=== PATIENT | male | born 1975 | race Two or more races ===

== ENCOUNTER 2018-02-10 18:14 | Emergency (ER) | payer BC ==
[2018-02-10] MEDS ORDERED: LIDOCAINE 1% INJ 10MG/ML (20 ML MDV) SQ ONE (18:36)
[2018-02-10 18:51] VITALS: RESP 20
[2018-02-10] MEDS ORDERED: fentaNYL (PF) 50 MCG/ML 2 ML AMP IVP STA (18:55)
--- NOTE | 2018-02-10 18:59 | XR ---
EXAMINATION TYPE: XR ankle limited LT DATE OF EXAM: 02/10/2018 COMPARISON: None HISTORY: Pain injury TECHNIQUE: 2 view left ankle FINDINGS: There is a fracture of the distal fibula. There is complete dislocation of the tibia from t he talus. IMPRESSION: 1. Dislocation of the ankle laterally with fracture of the distal diaphyseal fibula. Some posterior angulation of the fracture fragments is evident.
--- NOTE | 2018-02-10 19:01 | XR ---
EXAMINATION TYPE: XR tibia fibula LT DATE OF EXAM: 02/10/2018 COMPARISON: None HISTORY: Tackle injury, deformity TECHNIQUE: 2 view left tibia and fibula FINDINGS: Also see ankle images same date. Proximal tibia and fibula appear intact. The distal fibular diaphyseal fractures at the edge of the f [id number]. IMPRESSION: 1. Distal foreleg fracture minimally visualized. 2. Proximal tibia and fibula appear intact
--- NOTE | 2018-02-10 19:44 | XR ---
EXAMINATION TYPE: XR tibia fibula LT DATE OF EXAM: 02/10/2018 COMPARISON: 02/10/2018 HISTORY: Fracture dislocation TECHNIQUE: 2 view left tibia and fibula FINDINGS: The fibular fracture has normal alignment and positioning. There is mild subluxation of the talus laterally in relation to the ankle mortise. There is significant improvement in the reduction. No new fractures are identified. IMPRESSION: 1. Subluxation of the talus laterally in relation to the tibia. This is significantly improved from the comparison. 2. Normal alignment and positioning of the distal diaphyseal fibular fracture.
--- NOTE | 2018-02-10 19:46 | XR ---
EXAMINATION TYPE: XR ankle limited LT DATE OF EXAM: 02/10/2018 COMPARISON: 02/10/2018 HISTORY: Fracture dislocation TECHNIQUE: 2 view left ankle FINDINGS: Distal diaphyseal fibular fracture is evident. There is been reduction of the talus in rela tion to the tibia. Some lateral subluxation remains present. On the AP projection there is some subtle lucency within the distal medial malleolus. Nondisplaced fr acture of the distal medial malleolus is not excluded. IMPRESSION: 1. Reduction of the tibial talar dislocation. Some subluxation laterally remains present. 2. Reduction of the distal diaphyseal fibular fracture. 3. Possible nondisplaced occult fracture of the distal medial malleolus.
--- NOTE | 2018-02-10 20:27 | ED ---
General Adult HPI - General Chief complaint: Extremity Injury, Lower Stated complaint: Ankle injury Time Seen by Provider: 02/10/18 18:23 Source: patient Mode of arrival: EMS Limitations: no limitations - History of Present Illness Initial comments: Patient is a 42-year-old male presents with a chief complaint of a left ankle injury. Patient was playing football in the yard and got tackled. Patient states he rolled his ankle. On initial evaluation the ankle is obviously deformed with skin tenting. Patient admits to drinking 10-12 beers tonight. Patient has no other injuries or complaints. Patient is in no acute distress. - Related Data Home Medications Medication Instructions Recorded Confirmed Red Yeast Rice 600 mg PO DAILY 02/10/18 02/10/18 Vit D3/Folic Acid/B2/B6/B12 1 each PO DAILY 02/10/18 02/10/18 [Folgard Tablet] Previous Rx's Medication Instructions Recorded HYDROcodone/APAP 7.5-325MG [[place] 1 tab PO Q4H PRN 3 Days #18 tab 02/10/18 7.5-325] Ibuprofen [Motrin] 800 mg PO TID #21 tab 02/10/18 Allergies Allergy/AdvReac Type Severity Reaction Status Date / Time No Known Allergies Allergy Verified 02/10/18 18:18 Review of Systems ROS Statement: Those systems with pertinent positive or pertinent negative responses have been documented in the HPI. ROS Other: All systems not noted in ROS Statement are negative. Musculoskeletal: Reports: joint swelling, arthralgia Past Medical History Past Medical History: No Reported History History of Any Multi-Drug Resistant Organisms: None Reported Past Surgical History: No Surgical Hx Reported Past Psychological History: No Psychological Hx Reported Smoking Status: Never smoker Past Alcohol Use History: Occasional Past Drug Use History: None Reported General Exam Limitations: no limitations General appearance: alert, in no apparent distress Head exam: Present: atraumatic, normocephalic Eye exam: Present: normal appearance ENT exam: Present: normal exam Neck exam: Present: normal inspection Respiratory exam: Present: normal lung sounds bilaterally. Absent: respiratory distress, wheezes, rales Cardiovascular Exam: Present: normal rhythm, bradycardia GI/Abdominal exam: Present: soft. Absent: distended, tenderness Rectal exam: Present: deferred Extremities exam: Present: other (Patient has a severely deformed left ankle. There is skin tenting, and external rotation of about 100. There is a palpable DP pulse, good cap refill. Patient states that his toes are numb) Back exam: Present: normal inspection Neurological exam: Present: alert, oriented X3, CN II-XII intact Psychiatric exam: Present: normal affect, normal mood Skin exam: Present: warm, dry, intact Course Vital Signs 02/10/18 02/10/18 02/10/18 18:18 18:45 19:11 Temperature Pulse Rate 48 L 52 L 65 Respiratory 18 20 20 Rate Blood Pressure 93/43 112/71 116/75 O2 Sat by Pulse 100 99 96 Oximetry 02/10/18 19:42 Temperature 98.2 F Pulse Rate 56 L Respiratory 20 Rate Blood Pressure 117/77 O2 Sat by Pulse 99 Oximetry Medical Decision Making - Medical Decision Making Patient presents with a chief complaint of an ankle injury. On initial evaluation, vitals are stable, patient is in no acute distress. There is gross deformity of the left ankle. X-rays show a fracture of the distal fibula, and tibiotalar dislocation. The foot is rotated laterally about 100. X-rays confirm this finding. Local anesthesia was obtained with a several, and peroneal nerve block. Reduction was performed in the emergency department with good anatomical alignment of the extremity, pulses remain intact, feeling returned to the patient's toes. Currently the patient states he is a 0 out of 10 pain. Case discussed with Dr. Sequeira who states that the patient is stable for discharge and follow-up in the office on Monday. Patient given a prescription for [place], and Motrin. Opiate start talking form was filled out. Patient was instructed to use oral medications. Patient placed in a posterior mold short leg splint and instructed to be nonweightbearing on that extremity. He was instructed to elevate the extremity while at home. He was given contact information for Dr. Sequeira and instructed to follow up on Monday. Disposition Clinical Impression: Closed left ankle fracture Disposition: HOME SELF-CARE Condition: Good Instructions: Ankle Fracture (DC) Prescriptions: HYDROcodone/APAP 7.5-325MG [[place] 7.5-325] 1 tab PO Q4H PRN 3 Days #18 tab PRN Reason: Severe Pain Ibuprofen [Motrin] 800 mg PO TID #21 tab Is patient prescribed a controlled substance at d/c from ED?: Yes If prescribed controlled substance>3 days was MAPS reviewed?: Prescribed <3 Days Referrals: Ziggy Rae MD [Primary Care Provider] - 1-2 days Farnaz Freedman DO [Doctor of Osteopathic Medicine] - 1-2 days
[2018-02-10 20:46] VITALS: BP 102/56; PULSE 53; TEMP 98.3
== END 2018-02-10 20:35 | disposition home or self-care (01) ==
LOC: EC 18:14
DX: S82.832A Other fracture of upper and lower end of left fibula, initial encounter for closed fracture (principal); Z79.899 Other long term (current) drug therapy; W03.XXXA Other fall on same level due to collision with another person, initial encounter; Y93.61 Activity, american tackle football; Y92.096 Garden or yard of other non-institutional residence as the place of occurrence of the external cause
CPT/HCPCS: 73590; 73600; 99284; 27788; 96374; J2001; J3010

== ENCOUNTER → 2018-02-16 | Outpatient (CLI) | payer BC ==
--- NOTE | 2018-02-17 19:40 | CT ---
EXAMINATION TYPE: CT ankle LT wo con DATE OF EXAM: 02/16/2018 COMPARISON: Left ankle radiographs dated 02/10/2018 HISTORY: left ankle fx and left ankle pain. CT DLP: 342 mGycm Automated exposure control for dose reduction was used. TECHNIQUE: Contiguous axial CT slices of the left ankle were obtained with coronal reformats. FINDINGS: There is nonunion of the comminuted spiral fracture of the distal fibula with persistent 4 mm lateral displacement and mild angulation of the distal fracture fragment and its proximal fracture location. The distal fracture location is nondisplaced. The previously seen dislocation of the talotibial join t is no longer present. Joint spaces malalignment. Punctate density representing a small avulsion fra cture is seen of the medial malleolus with extensive soft tissue swelling overlying the medial malleo ej and lateral malleolus (seen diffusely throughout the ankle) suggesting underlying deltoid, anteri or talofibular ligament, and posterior talofibular ligament injury. Talar dome appears intact. No add itional fractures of the hindfoot are identified. No widening of the joint space in the region of the Lisfranc ligament. Type II navicular is seen. Calcaneal enthesophytes are also noted. IMPRESSION: 1. NONUNION OF THE SPIRAL DISTAL FIBULAR FRACTURE WITH PERSISTENT MILD ANGULATION AND DISPLACEMENT. 2. SMALL AVULSION FRACTURE OF THE MEDIAL MALLEOLUS SUGGESTING UNDERLYING DELTOID LIGAMENT INJURY. EXT ENSIVE SOFT TISSUE SWELLING OF THE ANKLE ALSO SUGGEST ANTERIOR TALOFIBULAR LIGAMENT AND POSSIBLE POST ERIOR TALOFIBULAR LIGAMENT INJURY. THERE IS ALSO SUSPECTED TENDINOUS INJURY FOR WHICH MRI COULD BE PE RFORMED. 3. NO EVIDENCE OF TALOTIBIAL JOINT DISLOCATION.
== END | disposition home or self-care (01) ==
LOC: RADCTMAIN 18:33
PROVIDERS: ATTEND Orthopaedic Surgery
DX: S82.52XA Displaced fracture of medial malleolus of left tibia, initial encounter for closed fracture (principal); S82.832A Other fracture of upper and lower end of left fibula, initial encounter for closed fracture; E78.5 Hyperlipidemia, unspecified

== ENCOUNTER 2018-02-22 06:51 | Day surgery (SDC) | payer BC ==
[2018-02-16 13:17] VITALS: BMI 29.4
[~2018-02-22 06:51] MED LIST: DEXAMETHASONE SOD PHOSPHATE 10 MG/ML 1 ML VIAL IV ONE; HYDROmorphone 0.5 MG/0.5 ML SYRINGE IVP PRN; ONDANSETRON 4 MG/2 ML VIAL IVP ONE; SCOPOLAMINE 1.5MG/72HR PATCH TRANSDERM ONE; ceFAZolin IN SWFI 2 GM/20 ML SYRINGE IVP ONE
[2018-02-22] MEDS: LACTATED RINGERS 1,000 ML IV SCH ×2 (08:04→08:51)
[2018-02-22] MEDS ORDERED: LIDOCAINE 1% 20 ML VIAL (10MG/ML) FOR IV START INTRADERMA ONE (08:06)
[2018-02-22] MEDS: MIDAZOLAM 2 MG/2 ML VIAL IV PRN ×2 (08:28→08:51)
[2018-02-22] MEDS: fentaNYL (PF) 50 MCG/ML 2 ML AMP IVP ONE ×2 (08:29→08:51)
--- NOTE | 2018-02-22 08:42 | P.ONQ ---
Anesthesiology Proc Note - PNB - Peripheral Nerve Block Performed Left Popliteal Single Time Out Performed: Yes Procedure Start Time: 08:27 Indication: Acute Post-Operative Pain, Analgesia Specifically requested for management of pain by DrBarbara: Rufino Melendez Sedation Type: Sedate with meaningful contact maintained Preparation: Sterile Prep Position: Supine (R lateral) Catheter: None Needle Types: Other (see comment) (Pajunk) Needle Size: 50mm (2") Needle Gauge: 21 Technique: Ultrasound Injectate: 0.5% Ropivacaine (see comment for volume) (30 cc) Blood Aspirated: No Pain Paresthesia on Injection Noted: No Resistance on Injection: Normal Events: Uneventful and Well Tolerated
[2018-02-22] MEDS ORDERED: SUCCINYLCHOLINE CHLORIDE 100 MG/5 ML SYR IV ONE (08:54)
[2018-02-22] MEDS ORDERED: ROPIVACAINE 5 MG/ML 30 ML VIAL ONE (08:54)
[2018-02-22] MEDS ORDERED: fentaNYL (PF) 50 MCG/ML 2 ML AMP ONE (08:54)
[2018-02-22] MEDS ORDERED: HYDROmorphone (PF) 1 MG/ML ONE (08:54)
[2018-02-22] MEDS ORDERED: GLYCOPYRROLATE 0.2 MG/ML 2 ML VIAL ONE (08:54)
[2018-02-22] MEDS ORDERED: PROPOFOL 10 MG/ML 20 ML VIAL IV ONE (08:54)
[2018-02-22] MEDS ORDERED: MIDAZOLAM 2 MG/2 ML VIAL ONE (08:54)
[2018-02-22] MEDS ORDERED: LIDOCAINE 1% INJ 10MG/ML (20 ML MDV) ONE (08:54)
[2018-02-22] MEDS ORDERED: ROCURONIUM BROMIDE 10 MG/ML 10 ML VIAL IV ONE (08:54)
[2018-02-22] MEDS ORDERED: NEOSTIGMINE 1 MG/ML 10 ML VIAL ONE (08:54)
[2018-02-22] MEDS ORDERED: LACTATED RINGERS 1,000 ML IV ONE ×2 (10:13)
[2018-02-22 12:22] VITALS: TEMP 98.6
[2018-02-22 12:31] VITALS: RESP 18
[2018-02-22] MEDS ORDERED: KETOROLAC 30 MG/ML 1 ML VIAL IVP ONE (12:39)
--- NOTE | 2018-02-22 13:36 | FL ---
Fluoroscopy HISTORY: Open reduction internal fixation left ankle 53 seconds fluoroscopy time supplied to the referring clinician. 5 intraoperative C-arm images docum ent the procedure. See dictated report from orthopedic surgery.
--- NOTE | 2018-02-22 13:37 | XR ---
Limited left ankle HISTORY: Open reduction internal fixation 5 intraoperative images of the left ankle document the procedure
[2018-02-22 14:32] VITALS: BP 123/67; PULSE 74
--- NOTE | 2018-02-23 11:09 | OP ---
OPERATIVE REPORT DATE OF SURGERY: 02/22/2018. PREOPERATIVE DIAGNOSES: 1. Left Noyola C fibular fracture with syndesmotic disruption. 2. Left deltoid ligament avulsion. POSTOPERATIVE DIAGNOSES: 1. Left [place] C fibular fracture with syndesmotic disruption. 2. Left deltoid ligament avulsion. PROCEDURE: 1. Open reduction and internal fixation of left fibula fracture. 2. Open reduction and internal fixation of left syndesmosis. 3. Left deltoid ligament repair ankle. 4. Manual application of joint stress by physician, left ankle. 5. Application of short-leg splint by physician. SURGEON: Dr. Rufino Melendez. BARREL BUNG REMOVER AND DUMPER: Joey CHANDRA (Joey Estevez PAC was required as a skilled printer's assistant for patient positioning, surgical exposure, closure of wounds and application of splint. ANESTHESIA: General plus popliteal and saphenous nerve block. FLUIDS: 1100 mL crystalloid. BLOOD LOSS: 25 mL. INDICATION: The patient is a very pleasant, previously healthy 42-year-old male who sustained an isolated injury to his left ankle when he was wrestling with a friend. He was seen in the emergency department and diagnosed with ankle fracture, dislocation. He underwent closed reduction and was referred to our office. The patient was initially seen by my partner, Dr. Cardenas, who placed him in a well-padded bulky Serrano splint and sent him to my clinic. I met with the patient and his . We discussed that his injury would require surgery. He was sent for a CT scan to rule out other injuries. We discussed the potential risks and complications of surgery including, but not limited to, risk of anesthesia, risk of superficial infection, risk of deep infection, risk of delayed wound healing, risk of superficial wound necrosis, risk of damage to local blood vessels or nerves, risk of fracture, nonunion, risk of fracture, malunion, risk of malreduction of the syndesmosis, risk of postoperative instability, risk of symptomatic hardware, risk of broken hardware, risk of posttraumatic arthritis, risk of chronic pain, risk of chronic swelling, risk of an inability to regain pre-injury level of function, risk of DVT, risk of PE, and possible loss of life or limb. The patient understands the severity of his injury and the potential for posttraumatic arthritis. He provided his verbal and written consent to go for the surgery. The patient was identified in preoperative holding and the correct left ankle was marked with my initials. I reviewed the consent form with the patient and his . All their questions were answered. The patient was then brought back to the operating room after being given a popliteal and saphenous nerve block. He was positioned on the OR table where general anesthetic was administered. Once the patient was adequately under anesthesia, I took comparison x-rays of the unaffected right ankle including a mortise and a true talar dome overlap to use as a comparison to guide our syndesmotic reduction. A tourniquet was then applied to the proximal aspect of the left leg. A bump was placed under the left buttock internally rotating it to neutral. The right leg was secured to the table with foam and tape. The patient's left leg was then prepped and draped in the standard sterile fashion. Prior to starting surgery, a time- out was performed identifying the correct patient, operative extremity, and procedure. The patient's leg was then elevated, exsanguinated with an Esmarch bandage, and the tourniquet was inflated to 250 mmHg. I began by outlining a longitudinal incision directly over the fibula. The skin incision was made with a scalpel and dissection was carried down carefully through the subcutaneous tissue with tenotomy scissors. A branch of the superficial peroneal nerve was identified proximally in the incision and it was carefully retracted. The periosteum over the fibula and fascia over the peroneal muscles was incised longitudinally in line with the skin incision. I then sharply came down on the fracture, which was exposed. The fracture had a large butterfly fragment. I initially debrided the fracture. Once the fracture fragments were debrided, I clamped the fracture both proximally and distally taking care to gain fibular length. I was able to nicely morales all components of the butterfly fragment to the shaft proximally and the lateral malleolus distally. Once the fractures were clamped with small Vaber point-to- point reduction clamps, fluoroscopy was used to verify that the fracture was reduced and out to length. I proceeded to place a 2.0 mm lag screw through the proximal shaft to the proximal portion of the butterfly fragment. A 2.0 mm drill bit was used to create a gliding hole along the proximal, medial cortex and a 1.5 mm drill bit was used to create a threaded hole in the butterfly fragment. A fully threaded 2.0 mm lag screw was placed generating excellent compression across the proximal fracture fragment. I then proceeded to place a 2.4 mm lag screw from the anterior aspect of the butterfly fragment into the posterior distal portion of the distal fragment. A 2.4 mm drill bit was used to create a gliding hole and a 1.8 mm drill bit was used to create a threaded hole. A fully threaded 2.4 mm screw was placed generated excellent compression. I was able to remove all the clamps and the reduction held. Fluoroscopy was once again brought in to verify that the fracture was reduced and the fibula was out to length. Once the fibula was out to length, I contoured a 12 hole 1/3 tubular plate over the lateral aspect of the distal fibula. I placed three 3.5 mm nonlocking screws proximal to the fracture and two 3.5 mm screws in the most distal holes of the plate. The position of the plate was verified both clinically and with x-ray. At this point, I turned my attention medially. A longitudinal incision was made centered over the medial malleolus. Dissection was carried down carefully through the subcutaneous tissue with tenotomy scissors. Both the superficial and deep components of the deltoid were completely avulsed off the medial malleolus. There was a small piece of cartilage within the medial malleolus and early clot which was removed with a pituitary rongeur. The joint was copiously irrigated. The posterior tibial tendon was identified but was not incarcerated within the joint. I did not notice any osteochondral lesions of the exposed portion of the talus. I then roughened the surface of the medial malleolus with a rongeur. I used a 2.0 suture tack to help reapproximate the deltoid ligament. Two of the suture tacks were placed along the medial malleolus. The fibers of the deltoid ligament were then grasped and secured with the suture nicely reapproximating the deltoid footprint. Fluoroscopy was used to verify that the talus was reduced in the ankle mortise. Attention was then turned laterally to reduce the syndesmosis fully. I dissected over the anterior aspect of the fibula to the incisura. There was some soft tissue within the syndesmosis, which was debrided. There was nothing blocking reduction and I was able to perform a thumb reduction of the fibula into the incisura using the anterior margin of the incisura as a guide. Once the syndesmosis was reduced, a K-wire was placed, holding the fibula reduced within the incisura. Fluoroscopic images were taken including a true mortise view and a true talar overlap lateral. The x-rays appeared symmetric with the contralateral films. The fibula was out to length and the talus was reduced within the ankle mortise. I then proceeded to place a suture button device across the syndesmosis. I then placed a fully threaded 3.5 mm syndesmotic screw. At this point, final fluoroscopic images were taken including a mortise view, which showed the fibula out to length and all the fractures anatomically reduced. The ankle was stable within the ankle mortise. I performed a gentle manual external rotation stress x-ray and the talus remained within the mortise. On the true lateral of the ankle, the fibula appeared to be symmetric to the contralateral x-ray in terms of its anterior to posterior position within the syndesmosis. Both wounds were then copiously irrigated and closed in layers. The lateral incision was closed with a running 0 Vicryl stitch over the periosteum and fascia in the peroneal muscles. The deep subcu was reapproximated using 2-0 Vicryl. The skin was closed using 3-0 nylon Algower modification of the Donati stitch. Brown quarter-inch stretchy Steri-Strips were placed between each stitch. Medially, the deep layer was closed with 0 Vicryl. The superficial subcu was closed with 2-0 Vicryl and the skin was closed using 3-0 nylon Algower modification with Donati stitch. I verified that all instrument, sponge, and sharp counts were correct. The tourniquet was let down. A sterile dressing consisting of Betadine-soaked Adaptic, 4 x 4, and Webril was applied. A well-padded bulky Serrano splint was placed with the ankle at neutral. The patient was then woken from his anesthetic, transferred to a gurney and brought to PACU having tolerated the procedure well. MMODL / IJN: [id number] /
== END 2018-02-22 14:59 | disposition home or self-care (01) ==
LOC: OR 06:51
PROVIDERS: ATTEND Orthopaedic Surgery
DX: S82.832A Other fracture of upper and lower end of left fibula, initial encounter for closed fracture (principal); S93.422A Sprain of deltoid ligament of left ankle, initial encounter; W03.XXXA Other fall on same level due to collision with another person, initial encounter; Y93.83 Activity, rough housing and horseplay; Z79.3 Long term (current) use of hormonal contraceptives; Z79.1 Long term (current) use of non-steroidal anti-inflammatories (NSAID); E78.5 Hyperlipidemia, unspecified
CPT/HCPCS: 27784; 27829; 73600; 64450; C1713; J2250; J1100; J2710; J2405; J2001; J3010; J1885; J1170; J2795; J0330; J2704; J0690